=== PATIENT | male | born 1955 | race African-American/Black ===

== ENCOUNTER → 2020-02-06 16:14 | Outpatient (BNV) | payer BC, MEDICARE, SELFPAY | PROVIDERS: PCP Internal Medicine; Visit Provider Internal Medicine | DX: C91.10 Chronic lymphocytic leukemia of B-cell type not having achieved remission (principal); N28.89 Other specified disorders of kidney and ureter | CPT/HCPCS: 99213; 99214 ==

== ENCOUNTER → 2020-03-05 08:16 | Outpatient (REF) | payer BC, SELFPAY ==
--- NOTE | 2020-03-05 08:30 | CA_ITS ---
Transthoracic Echocardiogram Patient (Last, First, Middle): Vish Marc, Gender: Male Date of : 1955 Age: 64 Procedure Date: 03/05/2020 Procedure Type: Transthoracic Echocardiogram Location: OP Height: 182.88 cm Weight: 103.42 kg BSA: 2.25 m2 Heart Rate: bpm BP: 150 / 81 mmHg Sales Development Representative: HANG Referring MD: Magdaleno Urbano MD Symptoms: TYPICAL ATRIAL FLUTTER I48.3 Study Quality: Good ECG Rhythm: Undetermined Conclusions: - The left ventricular systolic function is normal. The visually estimated ejection fraction is between 55-60%. - There is mild calcification of the aortic valve. - No obvious valvular pathology seen on this study. Findings Left Ventricle Normal left ventricular cavity size. There is moderately increased left ventricular wall thickness. The left ventricular systolic function is normal. The visually estimated ejection fraction is between 55-60%. There is no evidence of regional wall motion abnormalities. Diastolic function is indeterminate on the basis of available data. Right Ventricle Normal right ventricular cavity size and systolic function. Atria The left atrium is normal in size. The right atrium is normal in size. Aortic Valve There is a normal trileaflet aortic valve. There is mild calcification of the aortic valve. There is no aortic valve stenosis. There is no aortic valve regurgitation. Mitral Valve The mitral valve appears normal. There is mild mitral valve regurgitation. There is no mitral valve stenosis. Pulmonic Valve The pulmonic valve was not well visualized. Tricuspid Valve Normal tricuspid valve structure. There is no tricuspid valve regurgitation. The pulmonary artery systolic pressure is normal. Great Vessels The asc aorta is normal in size. Venous The inferior vena cava is normal in size and collapses greater than 50% with inspiration. Pericardium/Pleural There is no evidence of pericardial effusion. Prior Study Comparison Changes noted compared to prior study dated: 07/19/2019. Improved LVEF. Recommendations, Care & Conclusions No obvious valvular pathology seen on this study. Measurements 2D Linear Measurements IVSd: 1.40 0.6-0.9/0.6-1.0 cm LVIDd: 5.74 3.9-5.3/4.2-5.9 cm LVIDd Index: 2.55 2.4-3.2/2.2-3.1 cm/m2 LVIDs: 4.26 2.0-3.6 cm LVPWd: 1.22 0.7-1.1 cm Ao Root: 3.50 2.1-3.5 cm LA Diam: 4.40 2.7-3.8/3.0-4.0 cm LAIDs Index: 1.96 1.5-2.3 cm/m2 LV Mass: 410.96 67-162/88-224 g LV Mass Index: 182.65 43-95/49-115 g/m2 LVOT Diam: 2.30 3.0+(-)1.3 cm 2D Systolic Function EF 4C: 52.60 >55% EF 2C: 77.80 >55% EF BiP: 67.50 >55% Mitral Valve MV Pk E: 0.49 MV PK A: 0.57 MV Decel Time: 243.00 E/A: 0.80 PHT: 71.00 MVA PHT: 3.10 Decel [place]: 2.00 Aortic Valve AoV Pk Adrian: 1.63 AoV Pk Grad: 11.00 LVOT LVOT Pk Adrian: 1.32 LVOT Mn Adrian: 0.84 LVOT VTI: 0.26 LVOT Pk Grad: 7.00 LVOT Mn Grad: 4.00 LVOT Diam: 2.30 LVOT Area: 4.15 Diastolic Function MV Pk E: 0.49 MV Pk A: 0.57 E/A: 0.80 Tricuspid Valve TR Pk Adrian: 2.32 TR Pk Grad: 22.00 RA Press: 3.00 RVSP: 25.00 Great Vessels Aorta Ao Root-2D: 3.50 2.0-3.7 cm Ao Asc: 3.60 2.1-3.4 cm Updated in Other Vendor System with Status of Final Magdaleno Urbano MD electronically signed on 03/05/2020 12:42:03 PM with status of Final
--- NOTE | 2020-03-05 09:30 | ECG_ITS ---
Hook-up date: 2020-03-05 10:38:00 Duration: 27:47:00 Test Indications: TYPICAL ATRIAL FLUTTER Medications: 75810 QRS complexes 101 Ventricular ectopics which represent <1 % of total QRS comp. 18859 Supraventricular ectopics which represent 43 % of total QRS comp. * Paced QRS complexs which represent % of total QRS comp. VENTRICULAR ECTOPY 98 Isolated 0 Bigeminal Cycles 0 Couplets 1 Runs 3 Beats in Runs 3 Beats LONGEST at 61 BPM at 08:59:05 2020-03-06 3 Beats FASTEST at 61 BPM at 08:59:05 2020-03-06 SUPRAVENTRICULAR ECTOPY 02904 Isolated 83 Couplets 46 Runs 199 Beats in Runs 25 Beats LONGEST at 125 BPM at 09:57:16 2020-03-06 25 Beats FASTEST at 125 BPM at 09:57:16 2020-03-06 HEART RATES 44 MIN at 09:57:35 2020-03-06 62 AVG 82 MAX at 00:51:51 2020-03-06 LONGEST RR 1.6720 secs at 09:57:30 2020-03-06 S-T LEVELS Channel 1 - 128 mm at 10:38:00 2020-03-05 - 128 mm at 10:38:00 2020-03-05 Channel 2 - 128 mm at 10:38:00 2020-03-05 - 128 mm at 10:38:00 2020-03-05 Channel 3 - 128 mm at 02:95:71 -- - 128 mm at 02:95:71 Underlying rhythm is sinus; Average ventricular rate 62/min; range 44-82/min; Frequent supraventricular ectopy- about 38,000 over 27 Hrs (43%); mostly isolated with some short runs, longest 25 beats at 125/min; Rare ventricular ectopy; Patient did not report any symptoms in the diary Referred By: Joycelyn Alexis Overread By: JOYCELYN ALEXIS
== END ==
LOC: HO.CARD 08:16
PROVIDERS: PCP Internal Medicine; Visit Provider Internal Medicine
DX: I48.3 Typical atrial flutter (principal)
CPT/HCPCS: 93225; 93226; 93306

== ENCOUNTER → 2020-04-22 14:50 | Outpatient (BNVA) | payer BC, SELFPAY | PROVIDERS: PCP Internal Medicine; Visit Provider Internal Medicine | DX: Z76.89 Persons encountering health services in other specified circumstances (principal) ==

== ENCOUNTER → 2020-07-23 15:16 | Outpatient (BNVA) | payer BC, SELFPAY | PROVIDERS: PCP Internal Medicine; Visit Provider Internal Medicine ==

== ENCOUNTER → 2020-08-06 09:48 | Outpatient (REF) | payer BC, MEDICARE, SELFPAY | LOC: HO.SL 09:48 | PROVIDERS: PCP Internal Medicine; Visit Provider Internal Medicine | DX: I48.92 Unspecified atrial flutter (principal) | CPT/HCPCS: 95806 ==

== ENCOUNTER → 2020-09-05 11:19 | Outpatient (BNVA) | payer MEDICARE, SELFPAY | PROVIDERS: PCP Internal Medicine; Visit Provider Internal Medicine | DX: G47.33 Obstructive sleep apnea (adult) (pediatric) (principal); I42.8 Other cardiomyopathies; C91.10 Chronic lymphocytic leukemia of B-cell type not having achieved remission | CPT/HCPCS: 99202 ==

== ENCOUNTER → 2020-10-14 11:11 | Outpatient (BNVA) | payer MEDICARE, SELFPAY | PROVIDERS: PCP Internal Medicine; Visit Provider Internal Medicine | DX: G47.33 Obstructive sleep apnea (adult) (pediatric) (principal) | CPT/HCPCS: 99212 ==

== ENCOUNTER → 2020-12-12 10:07 | Outpatient (BNVA) | payer MEDICARE, SELFPAY | PROVIDERS: PCP Internal Medicine; Referring Provider Internal Medicine; Visit Provider Internal Medicine | DX: I48.3 Typical atrial flutter (principal); I42.8 Other cardiomyopathies; I10 Essential (primary) hypertension; G47.33 Obstructive sleep apnea (adult) (pediatric) | CPT/HCPCS: 93005; 99212 ==

== ENCOUNTER → 2021-02-26 13:14 | Outpatient (BNVA) | payer MEDICARE, SELFPAY | PROVIDERS: PCP Internal Medicine; Visit Provider Internal Medicine | DX: G47.33 Obstructive sleep apnea (adult) (pediatric) (principal); E66.9 Obesity, unspecified | CPT/HCPCS: 99212 ==

== ENCOUNTER → 2022-04-28 10:40 | Outpatient (BNVA) | payer MEDICARE, SELFPAY | PROVIDERS: PCP Internal Medicine; Visit Provider Internal Medicine | DX: I48.3 Typical atrial flutter (principal); I42.8 Other cardiomyopathies; I10 Essential (primary) hypertension; G47.33 Obstructive sleep apnea (adult) (pediatric); Z79.01 Long term (current) use of anticoagulants; Z79.899 Other long term (current) drug therapy; Z99.89 Dependence on other enabling machines and devices | CPT/HCPCS: 93005; 99212 ==

== ENCOUNTER 2022-12-08 11:13 | Outpatient (REF) | payer MEDICARE, SELFPAY | END 2022-12-08 11:14 | disposition home or self-care (01) | LOC: HO.PET 11:13 | PROVIDERS: PCP Internal Medicine; Visit Provider Internal Medicine | DX: Z13.89 Encounter for screening for other disorder (principal) ==

== ENCOUNTER 2023-02-23 11:01 | Outpatient (REF) | payer MEDICARE, SELFPAY ==
--- NOTE | ~2023-02-23 | CT_ITS ---
EXAMINATION: CT CHEST, ABDOMEN AND PELVIS WITHOUT CONTRAST CLINICAL INFORMATION: Chronic lymphocytic leukemia. COMPARISON: 02/18/2017 TECHNIQUE: Multidetector volumetric imaging was performed of the chest, abdomen and pelvis without intravenous contrast. Oral contrast was not administered. Sagittal and coronal reformatted images were obtained on the technologist's workstation. This CT examination was performed using dose optimization techniques as appropriate, variously including the following: *Automated exposure control *Adjustment of mA and/or kV according to patient size (this includes techniques or standardized protocols for targeted exams where dose is matched to indication/reason for exam; i.e. extremities or head) *Use of iterative reconstruction technique DLP: 813.29 mGy-cm FINDINGS: CHEST: AXILLA: No lymphadenopathy. MEDIASTINUM: Heart size is stable. Great vessels are unchanged in caliber. No pericardial effusion. No bulky mediastinal or hilar lymphadenopathy. Patulous esophagus. CORONARY ARTERY CALCIFICATION: Mild. PLEURA: There is no pleural effusion. LUNGS: No suspicious pulmonary nodule. ABDOMEN AND PELVIS: LIVER AND BILIARY TREE: The noncontrast liver is normal in contour. No biliary ductal dilatation. GALLBLADDER: Unremarkable. PANCREAS: Atrophic changes. SPLEEN: Not enlarged. Peripheral calcification. ADRENAL GLANDS: Mild thickening of the left adrenal gland. Right adrenal gland is unremarkable. KIDNEYS AND URETERS: The kidneys are symmetric in size. There are bilateral renal cysts which require no further imaging follow-up. There is a solid mass at the lateral midpole of the left kidney measuring 3.4 x 2.6 x 2.7 cm. No hydronephrosis or perinephric fluid collection. GASTROINTESTINAL TRACT: Hiatal hernia. Small and large bowel loops are of normal caliber. No small bowel obstruction. VASCULAR: Normal caliber abdominal aorta. LYMPH NODES: Enlarged bilateral inguinal lymph nodes measuring up to 1.4 cm in short axis dimension. Few prominent retroperitoneal lymph nodes are smaller than on the comparison study. FREE FLUID: No free fluid. BLADDER: Circumferential wall thickening despite underdistention. PELVIC VISCERA: Enlarged prostate gland. OSSEOUS STRUCTURES: No destructive bone lesions. Fatty atrophy of the left iliopsoas muscle. CT/CT abdomen pelvis wo IV con IMPRESSION: 3.4 x 2.6 x 2.7 cm solid mass lateral midpole of the left kidney.
== END 2023-02-23 11:02 | disposition home or self-care (01) ==
LOC: HO.CT 11:01
PROVIDERS: PCP Internal Medicine; Visit Provider Internal Medicine
DX: C91.10 Chronic lymphocytic leukemia of B-cell type not having achieved remission (principal)
CPT/HCPCS: 71250; 74176

== ENCOUNTER → 2023-04-06 11:23 | Outpatient (REF) | payer MEDICARE, SELFPAY ==
--- NOTE | 2023-04-06 11:31 | CA_ITS ---
Transthoracic Echocardiogram Patient (Last, First, Middle): Vish Marc A Gender: Male Date of : 1955 Age: 68 Procedure Date: 04/06/2023 Procedure Type: Transthoracic Echocardiogram Location: OP Height: 182.88 cm Weight: 104.33 kg BSA: 2.26 m2 Heart Rate: bpm BP: 136 / 76 mmHg Lime Supervisor: CHAY Referring MD: Magdaleno Urbano MD Symptoms: I42.8 - Other cardiomyopathies Study Quality: Fair ECG Rhythm: Sinus Conclusions: - The left ventricular systolic function is hyperdynamic. The visually estimated ejection fraction is >70%. - No obvious valvular pathology seen on this study. Findings Left Ventricle Normal left ventricular cavity size. There is mildly increased left ventricular wall thickness. The left ventricular systolic function is hyperdynamic. The visually estimated ejection fraction is >70%. There is no evidence of regional wall motion abnormalities. Evidence suggests grade I (mild) diastolic dysfunction. There is moderate septal asymmetric hypertrophy. Right Ventricle Normal right ventricular cavity size and systolic function. Atria Both atria are normal in size. Aortic Valve There is a normal trileaflet aortic valve. There is mild calcification of the aortic valve. There is no aortic valve stenosis. There is no aortic valve regurgitation. Mitral Valve The mitral valve appears normal. There is no mitral valve regurgitation. There is no mitral valve stenosis. Pulmonic Valve The pulmonic valve is likely normal. Tricuspid Valve There is trace tricuspid valve regurgitation. Tricuspid regurgitation envelope is inadequate for calculation of right ventricular systolic pressure. Great Vessels The asc aorta is normal in size. Venous The inferior vena cava is normal in size and collapses greater than 50% with inspiration. Pericardium/Pleural There is no evidence of pericardial effusion. Prior Study Comparison Changes noted compared to prior study dated: 03/05/2020. LVEF higher. Recommendations, Care & Conclusions No obvious valvular pathology seen on this study. Measurements 2D Linear Measurements IVSd: 1.48 0.6-0.9/0.6-1.0 cm LVIDd: 4.70 3.9-5.3/4.2-5.9 cm LVIDd Index: 2.08 2.4-3.2/2.2-3.1 cm/m2 LVIDs: 2.96 2.0-3.6 cm LVPWd: 1.14 0.7-1.1 cm LA Diam: 4.30 2.7-3.8/3.0-4.0 cm LAIDs Index: 1.90 1.5-2.3 cm/m2 LV Mass: 299.94 67-162/88-224 g LV Mass Index: 132.72 43-95/49-115 g/m2 LVOT Diam: 2.40 3.0+(-)1.3 cm Mitral Valve MV Pk E: 0.61 MV PK A: 0.73 MV Decel Time: 254.00 E/A: 0.80 E'Lateral: 5.66 E'Medial: 4.26 E/E' Med: 14.20 E/E' Lat: 10.70 PHT: 74.00 MVA PHT: 2.97 Decel [place]: 2.40 Aortic Valve AoV Pk Adrian: 1.45 AoV Pk Grad: 8.00 AYESHA: 4.18 LVOT LVOT Pk Adrian: 1.34 LVOT Pk Grad: 7.00 LVOT Diam: 2.40 LVOT Area: 4.52 Diastolic Function MV Pk E: 0.61 MV Pk A: 0.73 E/A: 0.80 E'Medial: 4.26 E/E' Med: 14.20 E' Laterial: 5.66 E/E' Lat: 10.70 Right Ventricle TAPSE (mm): 23.10 TVS' Adrian: 16.10 Tricuspid Valve RA Press: 3.00 Great Vessels Aorta Sinus of Valsalva: 3.87 2.0-3.5 cm Ao Asc: 3.70 2.1-3.4 cm Updated in Other Vendor System with Status of Final Magdaleno Urbano MD electronically signed on 04/07/2023 12:18:43 PM with status of Final
--- NOTE | 2023-04-06 11:31 | HM_ITS ---
* Total monitoring time 3 days. * Underlying rhythm is sinus with an average rate of 68/Min. Range 72 to 85/Min. * Frequent supraventricular ectopy with a burden of 42%. Frequent couplets. * Rare ventricular ectopy with a burden of 0.3%. One episode of 4 beats at 101/Min. Cannot exclude supraventricular with aberrancy. * No significant pauses or AV blocks. * No patient markers or events in diary. MTDD
== END ==
LOC: HO.CARD 11:23
PROVIDERS: PCP Internal Medicine; Visit Provider Internal Medicine
DX: I48.3 Typical atrial flutter (principal); I42.8 Other cardiomyopathies
CPT/HCPCS: 93242; 93306

== ENCOUNTER → 2023-04-06 11:31 | Outpatient (BNV) | payer MEDICARE, SELFPAY | PROVIDERS: PCP Internal Medicine; Visit Provider Internal Medicine | DX: I47.10 Supraventricular tachycardia, unspecified (principal) | CPT/HCPCS: 93244; 93306 ==

== ENCOUNTER 2023-06-02 14:15 | Outpatient (AMB) | payer MEDICARE, SELFPAY ==
--- NOTE | 2023-06-02 14:34 | A.OFFVIS_ITS ---
Intake Vital Signs 06/02/23 14:36 Height 6 ft Weight 231 lb 0.711 oz BMI 31.3 BP 138/76 Blood Pressure Location Lt brachial Position Sitting Pulse 58 Intake Visit Reasons: r/s 1 year followup w/ekg w/echo Intake Note: 1 year w/ EKG [employer] Required: No Accompanied by: Self / Same As Patient Allergies lisinopril [LISINOPRIL] Allergy (Unknown, Verified 06/02/23 14:37) ANGIOEDEMA nifedipine [From PROCARDIA] Allergy (Unknown, Verified 06/02/23 14:37) Hives diltiazem [DILTIAZEM] Adverse Reaction (Unknown, Verified 06/02/23 14:37) INTERACTS WITH CHEMO MED IMBRUVICA Medication List - Last Reconciled 06/02/23 by Magdaleno Urbano MD apixaban (Eliquis) 5 mg PO BID ibrutinib (Imbruvica) 420 mg PO DAILY insulin aspart U-100 (Novolog FlexPen U-100 Insulin aspart) 100 units subcut BID insulin glargine (Basaglar KwikPen U-100 Insulin) 25 units subcut BEDTIME losartan 25 mg PO DAILY metoprolol tartrate 50 mg PO BID 90 days pioglitazone (Actos) 45 mg PO DAILY rosuvastatin 20 mg PO BEDTIME HPI HPI Comments History of Present Illness Details Vish returns for follow-up regarding atrial flutter. He had very difficult to control atrial flutter. In spite of cardioversions, he was not able to maintain sinus rhythm and was going back into flutter. Then after amiodarone loading, we once again re-attempted cardioversion but that did not last. Eventually had atrial flutter ablation. He has frequent atrial ectopy but no recurrent flutter fibrillation. Overall he is doing generally okay. Some tiredness during the summer when he was trying to do lawn work but no other cardiac symptoms. Of note, we could not use Cardizem in the past due to interaction with chemo medication-ibrutinib. Prior to the atrial flutter issue, we used to follow him regarding high PAC burden. [facility] Medical History Obesity (BMI 30-39.9) Essential hypertension Nonischemic cardiomyopathy Typical atrial flutter Surgical History Status post biopsy of kidney History of cardiac radiofrequency ablation (~11/29/19) Family History Father No problems noted. Mother No problems noted. Social History Household Members: None Housing: House Are you a primary care program director to a significant other at home: No Do you presently have visiting nurse or other home services: No Alcohol intake: never Patient Tobacco Use Status: Never used Tobacco service: No Current occupational status: retired Review of Systems Const Denies weakness ENT Denies dizziness Card Denies chest pain, Denies chest pain with activity, Denies syncope, Denies rapid heart rate, Denies pedal edema, Denies edema, Denies leg edema, Denies lightheadedness, Denies palpitations, Denies dyspnea, Denies dyspnea on exertion and Denies orthopnea Resp Denies cough, Denies dyspnea and Denies dyspnea on exertion GI Denies hematochezia and Denies change in stool character Musc Denies abnormal gait, Denies muscle cramps, Denies muscle weakness, Denies numbness, Denies radiating pain into limb and Denies tingling Neuro Denies abnormal gait, Denies dizziness, Denies syncope, Denies numbness, Denies tingling and Denies weakness Endo Denies palpitations Physical Exam Vital Signs: Last Vital Signs Pulse 58 06/02/23 14:36 BP 138/76 06/02/23 14:36 BMI result Body Mass Index 31.3 Const General: comfortable and no acute distress Orientation/consciousness: patient oriented x3 HEENT Other: Unremarkable Head: Yes normal to inspection Neck Neck: Yes normal visual inspection Chest Chest palpation & inspection: normal inspection of the chest Resp Auscultation: clear to auscultation bilaterally Cardio Palpation: normal PMI Heart sounds: S1 normal heart sound present, S2 normal heart sound present, no gallops, no murmurs and no rubs GI Palpation (GI): Soft to palpation Back/Spine/Pelvis Other: unremarkable Skin General skin exam: no rashes or lesions noted Neuro General: patient oriented x3 Extrem General: Yes normal to inspection Psych Mental Status: mental status grossly normal Office Procedures EKG Details: EKG with sinus bradycardia at 58/Min; frequent supraventricular ectopy in a bigeminal pattern; leftward axis; left ventricular hypertrophy. [id number], Complete Assessment & Plan Assessment & Plan (1) Typical atrial flutter: Code(s): I48.3 - Typical atrial flutter Plan: Holter shows frequent supraventricular ectopy but no clear atrial arrhythmias like flutter/fibrillation. Continue beta-blockers. Unable to use diltiazem due to interaction with ibrutinib. Continue Eliquis. (2) Nonischemic cardiomyopathy: Code(s): I42.8 - Other cardiomyopathies Plan: Suspected tachycardia induced cardiomyopathy with recovered LVEF. Most recently, LVEF > 70%. In the past, myocardial perfusion imaging study showed normal perfusion. (3) Essential hypertension: Code(s): I10 - Essential (primary) hypertension Plan: Stable. No changes. (4) TIN (obstructive sleep apnea): Code(s): G47.33 - Obstructive sleep apnea (adult) (pediatric) Plan: Not using CPAP. Importance was discussed. Coding Level of Care Code Est Pt Level 4 (64630) Diagnoses Typical atrial flutter I48.3 Nonischemic cardiomyopathy I42.8 Essential hypertension I10 TIN (obstructive sleep apnea) G47.33 CPT Codes EKG - CPT: 06049-[id number], Complete ([id number])
[2023-06-02 14:36] VITALS: BP 138/76; PULSE 58; BMI 31.3
== END 2023-06-02 14:55 | disposition home or self-care (01) ==
PROVIDERS: PCP Internal Medicine; Visit Provider Internal Medicine
DX: I48.3 Typical atrial flutter (principal); I42.8 Other cardiomyopathies; I10 Essential (primary) hypertension; G47.33 Obstructive sleep apnea (adult) (pediatric)
CPT/HCPCS: 93010; 99214

== ENCOUNTER → 2023-06-02 14:15 | Outpatient (BNVA) | payer MEDICARE, SELFPAY | PROVIDERS: PCP Internal Medicine; Visit Provider Internal Medicine | DX: I48.3 Typical atrial flutter (principal); I42.8 Other cardiomyopathies; I10 Essential (primary) hypertension; G47.33 Obstructive sleep apnea (adult) (pediatric); Z79.01 Long term (current) use of anticoagulants; Z79.899 Other long term (current) drug therapy | CPT/HCPCS: 93005; 99212 ==

== ENCOUNTER 2024-06-01 13:05 | Outpatient (AMB) | payer MEDICARE, SELFPAY ==
[2024-06-01 13:09] VITALS: BP 130/74; PULSE 51; BMI 31.7
--- NOTE | 2024-06-01 13:09 | MHC.OFFVIS ---
Vital Signs 06/01/24 13:09 Height 6 ft Weight 233 lb 11.04 oz BMI 31.7 BP 130/74 Blood Pressure Location Lt brachial Position Sitting Pulse 51 Intake Visit Reasons: 1 yr f/up [employer] Required: No Accompanied by: Self / Same As Patient Allergies lisinopril [LISINOPRIL] Allergy (Unknown, Verified 04/18/24 10:00) ANGIOEDEMA nifedipine [From PROCARDIA] Allergy (Unknown, Verified 04/18/24 10:00) Hives diltiazem [DILTIAZEM] Adverse Reaction (Unknown, Verified 04/18/24 10:00) INTERACTS WITH CHEMO MED IMBRUVICA Medication List - Last Reconciled 06/01/24 by Magdaleno Urbano MD apixaban (Eliquis) 5 mg PO BID ibrutinib (Imbruvica) 420 mg PO DAILY insulin aspart U-100 (Novolog FlexPen U-100 Insulin aspart) 100 units subcut BID insulin glargine (Basaglar KwikPen U-100 Insulin) 25 units subcut BEDTIME losartan 25 mg PO DAILY metoprolol tartrate 50 mg PO BID 90 days pioglitazone (Actos) 15 mg PO DAILY rosuvastatin 20 mg PO BEDTIME HPI Comments Details: Vish returns for follow-up regarding atrial flutter. He had very difficult to control atrial flutter. In spite of cardioversions, he was not able to maintain sinus rhythm and was going back into flutter. Then after amiodarone loading, we once again re-attempted cardioversion but that did not last. Eventually had atrial flutter ablation. He has frequent atrial ectopy but no recurrent flutter or fibrillation. Of note, we could not use Cardizem in the past due to interaction with chemo medication-ibrutinib. Prior to the atrial flutter issue, we used to follow him regarding high PAC burden. Overall, he states he feels fine. No new cardiac concerns. [facility] Medical History Obesity (BMI 30-39.9) Essential hypertension Nonischemic cardiomyopathy Typical atrial flutter Surgical History Status post biopsy of kidney History of cardiac radiofrequency ablation (~11/29/19) Family History Father No problems noted. Mother No problems noted. Social History Household Members: None Housing: House Are you a primary eye care professional to a significant other at home: No Do you presently have visiting nurse or other home services: No Alcohol intake: never Patient Tobacco Use Status: Never used Tobacco service: No Current occupational status: retired Review of Systems Const Denies chills, Denies fatigue, Denies fever(s), Denies weight gain and Denies weight loss ENT Denies dizziness Card Denies chest pain, Denies leg edema, Denies lightheadedness, Denies palpitations, Denies dyspnea on exertion, Denies orthopnea and Denies other Resp Denies cough and Denies dyspnea on exertion GI Denies hematochezia and Denies change in stool character Musc Denies abnormal gait, Denies muscle weakness, Denies numbness, Denies radiating pain into limb and Denies tingling Neuro Denies abnormal gait, Denies dizziness, Denies numbness and Denies tingling Endo Denies fatigue and Denies palpitations Physical Exam Vital Signs: Last Vital Signs Pulse 51 06/01/24 13:09 BP 130/74 06/01/24 13:09 BMI result Body Mass Index 31.7 Const General: comfortable and no acute distress Orientation/consciousness: patient oriented x3 HEENT Other: Unremarkable Head: Yes normal to inspection Neck Neck: Yes normal visual inspection Chest Chest palpation & inspection: normal inspection of the chest Resp Auscultation: clear to auscultation bilaterally Cardio Palpation: normal PMI Heart sounds: S1 normal heart sound present, S2 normal heart sound present, no gallops, no murmurs and no rubs GI Palpation (GI): Soft to palpation Back/Spine/Pelvis Other: unremarkable Skin General skin exam: no rashes or lesions noted Neuro General: patient oriented x3 Extrem General: Yes normal to inspection Psych Mental Status: mental status grossly normal Office Procedures EKG Details: EKG with sinus bradycardia at 51/Min; leftward axis; left ventricular hypertrophy pattern; premature atrial contractions; [place]. [id number], Complete Assessment & Plan Assessment & Plan (1) Typical atrial flutter: Code(s): I48.3 - Typical atrial flutter Category: Medical Plan: Last Holter from 2022 with frequent supraventricular ectopy but no clear atrial arrhythmias like flutter/fibrillation. Continue beta-blockers. Unable to use diltiazem due to interaction with ibrutinib. Continue Eliquis. We will recheck with next visit. (2) Nonischemic cardiomyopathy: Code(s): I42.8 - Other cardiomyopathies Category: Medical Plan: Suspected tachycardia induced cardiomyopathy with recovered LVEF. Most recently, LVEF > 70%. In the past, myocardial perfusion imaging study showed normal perfusion. (3) Essential hypertension: Code(s): I10 - Essential (primary) hypertension Category: Medical Plan: Stable. No changes. (4) TIN (obstructive sleep apnea): Code(s): G47.33 - Obstructive sleep apnea (adult) (pediatric) Category: Medical Plan: He has not been using CPAP as it is very inconvenient. We discussed about this but unclear that if he will go back. Orders: Orders ECG 3 day holter monitor 1 Year I48.3 - Typical atrial flutter CA echo transthoracic complete 1 Year I42.8 - Other cardiomyopathies Coding Level of Care Code Est Pt Level 4 (25865) Diagnoses Typical atrial flutter I48.3 Nonischemic cardiomyopathy I42.8 Essential hypertension I10 TIN (obstructive sleep apnea) G47.33 CPT Codes EKG - CPT: 22800-[id number], Complete ([id number])
--- OUTSIDE RECORDS SUMMARY | 2024-06-01 16:53 | XMS_ITS | Encounter Summary ---
Author Organization [facility] Address [address] [place] [address] Care Team Providers Care Overnight Houseperson Name Role Phone Pcp, No Primary Care Provider Unavailabl e Encounter Details Date Type Department Care Team (Late st Contact Info) Description 05/31/2017 Scanned Document [address] [id number] Provider, Generic Social History Tobacco Use Types Packs/Day Years Used Date Smoking Tobacco: Never Smokeless Tobacco: Never Alcohol Use Standard Drinks/Week Comments Yes 0 (1 standard drink = 0.6 oz pur e alcohol) OCCASIONAL BEER Sex and Gender Information Value Date Recorded Sex Assigned at Not on file Gender Identity Not on file Sexual Orientation Not on file documented as of this encounter Plan of Treatment Not on file documented as of this encounter Visit Diagnoses Not on filedocumented in this encounter Care Teams Overnight Houseperson Relationship Specialty Start Date End Date Pcp, No PCP - General General Medicine 02/06/16 documented as of this encounter
--- OUTSIDE RECORDS SUMMARY | 2024-06-01 16:53 | XMS_ITS | Clinical Summary ---
Author Organization [facility], Address [address] [place] [address] Phone Care Team Providers Care Crane Follower Name Role Phone Yair Singh MD Primary Care Provider Allergies Active Allergy Reactions Criticality Noted Date Comments Lisinopril Other (see comments) Medium 06/22/2017 Nifedipine Other (see comments) Medium 06/22/2017 Medications amLODIPine (NORVASC) 5 MG tablet Take 5 mg by mouth 1 (one) time each day 6 Active apixaban (Eliquis) 5 MG tablet Take 5 mg by mouth in the morning and 5 mg in the evening. 0 Active Ibrutinib (Imbruvica) 420 MG tablet Take 420 mg by mouth 1 (one) time each day 0 Active insulin aspart (NovoLOG FLEXPEN) 100 UNIT/ML injection Inject 4-14 Units under the skin in the morning and 4-14 Units at noon and 4-14 Units in the evening. Inject before meals. 6 Active insulin glargine (LANTUS) 100 UNIT/ML injection Inject 20 Units under the skin in the morning. 6 Active metoprolol tartrate (LOPRESSOR) 50 MG tablet Take 50 mg by mouth in the morning and 50 mg in the evening. Active pioglitazone (ACTOS) 15 MG tablet Take 15 mg by mouth 1 (one) time each day Active rosuvastatin (CRESTOR) 20 MG tablet Take 20 mg by mouth 1 (one) time each day Active Jardiance 10 MG tablet TAKE ONE TABLET BY MOUTH IN THE MORNING 30 tablet 5 Active Jardiance 10 MG tablet TAKE ONE TABLET BY MOUTH IN THE MORNING 30 tablet 4 05/17/19 25 Discontinued Active Problems Problem Noted Date Diagnosed Date Type 2 diabetes mellitus 08/19/2023 Overview (08/19/2023): insulin-dependent Renal mass 08/19/2023 Proteinuria 08/19/2023 Hyponatremia 08/19/2023 Overview (08/19/2023): hypotonic History of acute kidney injury 08/19/2023 Stage 3b chronic kidney disease 08/19/2023 Peripheral vascular disease 08/19/2023 Cardiomyopathy 08/19/2023 Overview (08/19/2023): nonischemic Hyperlipidemia 05/02/2021 Essential hypertension 02/10/2016 Encounters Date Type Department Care Team Description 05/19/2024 Refill [facility] [address] [place] [address] Messi Burden MD 05/13/2024 Refill [facility] [place] [address] [place] [address] Messi Burden MD 04/19/2024 Refill [facility] [place] [address] [place] [address] Messi Burden MD 03/21/2024 Refill [facility] [place] [address] [place] [address] Messi Burden MD 2024 Refill [facility] [place] [address] [place] [address] Messi Burden MD 03/10/2024 2:45 PM EST Office Visit [facility] [place] [address] [place] [address] Messi Burden MD Chronic kidney disease, stage 4 (severe) (HCC) (Primary Dx) 03/09/2024 Documentation Only [facility] [place] [address] [place] [address] Zelda Castro from Last 3 Months Immunizations Name Administration Dates Next Due Influenza Split High Dose Preservative Free IM 03/18/2016 Influenza, MDCK, Quadrivalen t, with preservative 03/11/2021 Influenza, Unspecified 03/11/2021 PPD Test 05/03/2021 Pfizer SARS-COV-2 02/17/2021,,07/25/2020,2020,07/04/2020,07/04/2020 Family History Relation Status Comments Father Mother Sibling Social History Tobacco Use Types Packs/Day Years Used Date Smoking Tobacco: Never Alcohol Use Standard Drinks/Week Comments Yes 0 (1 standard drink = 0.6 oz pure alcohol) Alcoholic Drinks/day: Occasional social drink Sex and Gender Information Value Date Recorded Sex Assigned at Not on file Legal Sex Male 3:46 PM EDT Gender Identity Not on file Sexual Orientation Not on file Last Filed Vital Signs Vital Sign Reading Time Taken Comments Blood Pressure 110/72 03/10/2024 3:04 PM EST Pulse 52 03/10/2024 3:04 PM EST Temperature - - Respiratory Rate - - Oxygen Saturation - - Inhaled Oxygen Concentration - - Weight 106 kg (233 lb 9.6 oz) 09/10/2020 1:56 PM EDT Height 182.9 cm (6') 01/03/2019 12:00 PM EDT Body Mass Index 31.68 01/03/2019 12:00 PM EDT Plan of Treatment Upcoming Encounters Date Type Department Care Team (Late st Contact Info) Description 09/08/2024 2:15 PM EDT Office Visit [facility] [place] [address] [place] [address] Messi Burden MD [address] [place] [address] [place] [address] Health Maintenance Due Date Last Done Comments Pneumococcal Vaccine: 65+ Years (1 of 2 - PCV) 1961 Colorectal Cancer Screening: Annual FOBT 2003 Colorectal Cancer Screening: Colonoscopy 2003 Colorectal Cancer Screening: Sigmoidoscopy 2003 Diabetes: Hemoglobin A1C 07/24/2019 Diabetes: Ophthalmology Exam 07/24/2019 Diabetes: Pedal Pulse Checked 07/24/2019 Diabetes: Sensory Foot Exam 07/24/2019 Diabetes: Visual Foot Exam 07/24/2019 Influenza Vaccine (#1) 2024 1, 03/11/2021, 03/18/2016 Hepatitis B Vaccine Aged Out No longe r eligible based on patient's age to complete this topic Insurance [facility] Care Teams Crane Follower Relationship Specialty Start Date End Date Yair Singh MD [facility] [address] [facility] [address] [place], [place] PCP - General 03/07/19
--- OUTSIDE RECORDS SUMMARY | 2024-06-01 16:53 | XMS_ITS | Encounter Summary ---
Author Organization [facility] Address [address] [place] [address] Phone Care Team Providers Care Synthetic Chemist Name Role Phone Yair Singh MD Primary Care Provider [phone] Encounter Details Date Type Department Care Team (Late st Contact Info) Description 02/29/2024 Documentation Only [facility] [address] [place] [address] Zelda Castro [address] [place] [phone] Social History Tobacco Use Types Packs/Day Years [...] as of this encounter Plan of Treatment Upcoming Encounters Date Type Department Care Team (Late st Contact Info) Description 09/08/2024 2:15 PM EDT Office Visit [facility] [address] [place] [address] Messi Burden MD [address] [place] [address] [place] [address] documented as of this encounter Visit Diagnoses Not on filedocumented in this encounter Care Teams Synthetic Chemist Relationship Specialty Start Date End Date Yair Singh MD [facility]. [address] [facility] [address] [place], [place] PCP - General 03/07/19 documented as of this encounter
--- OUTSIDE RECORDS SUMMARY | 2024-06-01 16:53 | XMS_ITS | Encounter Summary ---
Author Organization [facility] Address [address] [place] [address] Phone Care Team Providers Care Glove Boarder Name Role Phone Yair Singh MD Primary Care Provider Encounter Details Date Type Department Care Team (Late st Contact Info) Description 03/09/2024 Documentation Only [facility] [address] [place] [address] Zelda Castro [address] [place] [phone] Social History Tobacco Use Types Packs/Day Years [...] Visit [facility] [address] [place] [address] Messi Burden MD [address] [place] [address] [place] [address] documented as of this encounter Visit Diagnoses Not on filedocumented in this encounter Care Teams Glove Boarder Relationship Specialty Start Date End Date Yair Singh MD [facility]. [address] [facility] [address] [place], [place] PCP - General 03/07/19 documented as of this encounter
--- OUTSIDE RECORDS SUMMARY | 2024-06-01 16:53 | XMS_ITS | Encounter Summary ---
Author Organization [facility] Address [address] [place] [address] Phone Care Team Providers Care Station Supervisor Name Role Phone Yair Singh MD Primary Care Provider Encounter Details Date Type Department Care Team (Late st Contact Info) Description 02/29/2024 Documentation Only [facility] [address] [place] [address] Zelda Castro [address] [place] [phone] Social History Tobacco Use Types Packs/Day Years [...] Visit [facility] [address] [place] [address] Messi Burden MD [address] [place] [address] [place] [address] documented as of this encounter Visit Diagnoses Not on filedocumented in this encounter Care Teams Station Supervisor Relationship Specialty Start Date End Date Yair Singh MD [facility]. [address] [facility] [address] [place], [place] PCP - General 03/07/19 documented as of this encounter
--- OUTSIDE RECORDS SUMMARY | 2024-06-01 16:53 | XMS_ITS | Encounter Summary ---
Author Organization [facility] Address [address] [place] [address] Phone Care Team Providers Care Automobile Service Writer Name Role Phone Yair Singh MD Primary Care Provider [phone] Reason for Visit * Reason Comments Med Refill Encounter Details Date Type Department Care Team (Late st Contact Info) Description 05/13/2024 Refill [facility] [address] [address] Messi Burden MD [address] [address] [place] [address] Social History Tobacco Use Types Packs/Day Years [...] Visit [facility] [address] [address] Messi Burden MD [address] [place] [address] documented as of this encounter Visit Diagnoses Not on filedocumented in this encounter Care Teams Automobile Service Writer Relationship Specialty Start Date End Date Yair Singh MD [facility]. [address] [place] [address] [address] [place], [place] PCP - General 03/07/19 documented as of this encounter
--- OUTSIDE RECORDS SUMMARY | 2024-06-01 16:53 | XMS_ITS | Encounter Summary ---
Author Organization [facility] Address [address] [place] [address] Phone Care Team Providers Care Auto Brake Mechanic Name Role Phone Yair Singh MD Primary Care Provider [phone] Reason for Visit * Reason Comments Med Refill Encounter Details Date Type Department Care Team (Late st Contact Info) Description 02/22/2024 Refill [facility] [address] [place] [address] Messi Burden MD [address] [place] [address] Social History Tobacco Use Types [...] Visit [facility] [address] [place] [address] Messi Burden MD [address] [place] [address] documented as of this encounter Visit Diagnoses Not on filedocumented in this encounter Care Teams Auto Brake Mechanic Relationship Specialty Start Date End Date Yair Singh MD [facility]. [address] [place] [address] [address] [place], [place] PCP - General 03/07/19 documented as of this encounter
--- OUTSIDE RECORDS SUMMARY | 2024-06-01 16:53 | XMS_ITS ---
Author Organization [facility] on Address Unknown Allergies, Adverse Reactions, Alerts Substance Reaction Status Noted Date Resolved Date Zestril active 05/02/2021 Procardia active 05/02/2021 Problems Problem Status Start Date End Date SEPSIS, UNSPECIFIED ORGANISM (Primary) (A41.9 - ICD-10 -CM) ACTIVE 05/02/2021 PERSONAL HISTORY OF COVID-19 (Z86.16 - ICD-10-CM) ACTI VE 05/02/2021 PNEUMONIA DUE TO CORONAVIRUS DISEASE 2019 (J12.82 - ICD-10-CM) ACTIVE 05/02/2021 ACUTE RESPIRATORY FAILURE, U NSPECIFIED WHETHER WITH HYPOXIA OR HYPERCAPNIA (J96.00 - ICD-10-CM) ACTIVE 05/02/2021 TYPE 2 DIABETES MELLITUS WIT HOUT COMPLICATIONS (E11.9 - ICD-10-CM) ACTIVE 05/02/2021 HYPO-OSMOLALITY AND HYPONATREMIA (E87.1 - ICD-10-CM) A CTIVE 05/02/2021 OTHER SPECIFIED FUNCTIONAL I NTESTINAL DISORDERS (K59.89 - ICD-10-CM) ACTIVE 05/02/2021 PAROXYSMAL ATRIAL FIBRILLATION (I48.0 - ICD-10-CM) ACT MTA 05/02/2021 HYPERLIPIDEMIA, UNSPECIFIED (E78.5 - ICD-10-CM) ACTIVE 05/02/2021 ESSENTIAL (PRIMARY) HYPERTENSION (I10 - ICD-10-CM) ACT MAT 05/02/2021 DYSPHAGIA, UNSPECIFIED (R13.10 - ICD-10-CM) ACTIVE 05/02/2021 Encounters Encounter Performer Performer Role Encounter Diagnoses Location Date Discharge - Discharged to home or self care - [facility] - Private home/apt. with home health services [facility] 05/02/2021 01:42 pm EST - 05/13/2021 11:16 am EST Immunizations Vaccine Date TB 2 Step Mantoux Skin Test 05/03/2021 0 9:00 am EST SARS-COV-2 (COVID-19) 02/17/2021 12:00 a m EDT SARS-COV-2 (COVID-19) 07/25/2020 12:00 a m EDT SARS-COV-2 (COVID-19) 07/04/2020 12:00 a m EST Social History
--- OUTSIDE RECORDS SUMMARY | 2024-06-01 16:53 | XMS_ITS | Encounter Summary ---
Author Organization [facility] Address [address] [place] [address] Phone Care Team Providers Care Telecommunications Field Technician Name Role Phone Yair Singh MD Primary Care Provider [phone]- [phone] Reason for Visit * Reason Comments Med Refill Encounter Details Date Type Department Care Team (Late st Contact Info) Description 05/19/2024 Refill [facility] [address] [place] [address] Messi Burden MD [address] [place] [address] Social History Tobacco Use Types [...] Visit [facility] [address] [place] [address] Messi Burden MD [address] [place] [address] documented as of this encounter Visit Diagnoses Not on filedocumented in this encounter Care Teams Telecommunications Field Technician Relationship Specialty Start Date End Date Yair Singh MD [facility]. [address] [place] [address] [address] [place], [place] PCP - General 03/07/19 documented as of this encounter
--- OUTSIDE RECORDS SUMMARY | 2024-06-01 16:53 | XMS_ITS | Encounter Summary ---
Author Organization [facility] Address [address] [place] [address] Phone Care Team Providers Care Couples Therapist Name Role Phone Yair Singh MD Primary Care Provider Encounter Details Date Type Department Care Team (Late st Contact Info) Description 02/29/2024 Documentation Only [facility] [address] [place] [address] Zelda Castro [address] [place] [phone] Social History Tobacco Use Types Packs/Day Years [...] Visit [facility] [address] [place] [address] Messi Burden MD [address] [place] [address] [place] [address] documented as of this encounter Visit Diagnoses Not on filedocumented in this encounter Care Teams Couples Therapist Relationship Specialty Start Date End Date Yair Singh MD [facility]. [address] [facility] [address] [place], [place] PCP - General 03/07/19 documented as of this encounter
--- OUTSIDE RECORDS SUMMARY | 2024-06-01 16:54 | XMS_ITS | Encounter Summary ---
Author Organization [facility] Address [address] [place] [address] Phone Care Team Providers Care Industrial Hygenist Name Role Phone Yair Singh MD Primary Care Provider Encounter Details Date Type Department Care Team (Late st Contact Info) Description 05/23/2021 Documentation Only [facility] [address] [place] [address] [place] [address] [place] [address] Social History Tobacco Use Types Packs/Day Years [...] Visit [facility] [address] [place] [address] Messi Burden MD [address] [facility] [place] [address] documented as of this encounter Visit Diagnoses Not on filedocumented in this encounter Care Teams Industrial Hygenist Relationship Specialty Start Date End Date Yair Singh MD [facility]. [address] [facility] [address] [place], [place] PCP - General 03/07/19 documented as of this encounter
--- OUTSIDE RECORDS SUMMARY | 2024-06-01 16:54 | XMS_ITS | Encounter Summary ---
Author Organization [facility] Address [address] [place] [address] Phone Care Team Providers Care Decorative Cutting Machine Tender Name Role Phone Yair Singh MD Primary Care Provider Encounter Details Date Type Department Care Team (Late st Contact Info) Description 05/28/2021 Documentation Only [facility] [address] [place] [address] Messi Burden MD [address] [facility] [place] [address] Social History Tobacco Use Types [...] Visit [facility] [address] [address] [place] [place] [address] Messi Burden MD [address] [facility] [place] [address] documented as of this encounter Visit Diagnoses Not on filedocumented in this encounter Care Teams Decorative Cutting Machine Tender Relationship Specialty Start Date End Date Yair Singh MD [facility] [address] [place] [address] [address] [place], [place] PCP - General 03/07/19 documented as of this encounter
--- OUTSIDE RECORDS SUMMARY | 2024-06-01 16:54 | XMS_ITS | Encounter Summary ---
Author Organization [facility] Address [address] [place] [address] Phone Care Team Providers Care Salvager Name Role Phone Yair Singh MD Primary Care Provider Encounter Details Date Type Department Care Team (Late st Contact Info) Description 08/17/2023 Documentation Only [facility] [address] [place] [address] Zelda Castro [address] [place] [phone] Social History Tobacco Use Types Packs/Day Years [...] Visit [facility] [address] [place] [address] Messi Burden MD [address] [place] [address] [place] [address] documented as of this encounter Visit Diagnoses Not on filedocumented in this encounter Care Teams Salvager Relationship Specialty Start Date End Date Yair Singh MD [facility]. [address] [facility] [address] [place], [place] PCP - General 03/07/19 documented as of this encounter
--- OUTSIDE RECORDS SUMMARY | 2024-06-01 16:54 | XMS_ITS | Encounter Summary ---
Author Organization [facility] Address [address] [place] [address] Phone Care Team Providers Care Piler Name Role Phone Yair Singh MD Primary Care Provider Encounter Details Date Type Department Care Team (Late st Contact Info) Description 05/28/2021 Documentation Only [facility] Of [address] [place] [address] Messi Burden MD [address] [facility] [place] [address] Social History Tobacco Use Types [...] Visit [facility] [address] [place] [address] Messi Burden MD [address] [facility] [place] [address] documented as of this encounter Visit Diagnoses Not on filedocumented in this encounter Care Teams Piler Relationship Specialty Start Date End Date Yair Singh MD [facility]. [address] [place] [address] [address] [place], [place] PCP - General 03/07/19 documented as of this encounter
--- OUTSIDE RECORDS SUMMARY | 2024-06-01 16:54 | XMS_ITS | Encounter Summary ---
Author Organization [facility] Address [address] [place] [address] Phone Care Team Providers Care Sustainable Systems Analyst Name Role Phone Yair Singh MD Primary Care Provider Encounter Details Date Type Department Care Team (Late st Contact Info) Description 09/03/2023 Documentation Only [facility] [address] [place] [address] Zelda Castro [address] [place] [address] Social History Tobacco Use Types [...] Visit [facility] [address] [place] [place] [address] Messi Burden MD [address] [place] [address] [place] [address] documented as of this encounter Visit Diagnoses Not on filedocumented in this encounter Care Teams Sustainable Systems Analyst Relationship Specialty Start Date End Date Yair Singh MD [facility]. [address] [facility] [address] [place], [place] PCP - General 03/07/19 documented as of this encounter
--- OUTSIDE RECORDS SUMMARY | 2024-06-01 16:54 | XMS_ITS | Encounter Summary ---
Author Organization [facility] Address [address] [place] [address] Phone Care Team Providers Care Supervisor Home Energy Consultant Name Role Phone Yair Singh MD Primary Care Provider Encounter Details Date Type Department Care Team (Late st Contact Info) Description 08/19/2023 Documentation Only [facility] [address] [place] [place] [address] Zelda Castro [address] [place] [phone] Social History Tobacco Use Types Packs/Day Years [...] Visit [facility] [address] [place] [place] [address] Messi Burden MD [address] [place] [address] [place] [address] documented as of this encounter Visit Diagnoses Not on filedocumented in this encounter Care Teams Supervisor Home Energy Consultant Relationship Specialty Start Date End Date Yair Singh MD [facility]. [address] [facility] [address] [place], [place] PCP - General 03/07/19 documented as of this encounter
--- OUTSIDE RECORDS SUMMARY | 2024-06-01 16:54 | XMS_ITS | Encounter Summary ---
Author Organization [facility] Address [address] [place] [address] Phone Care Team Providers Care Pilot Boat Deckhand Name Role Phone Yair Singh MD Primary Care Provider [phone]- [phone] Reason for Visit * Reason Comments Med Refill Encounter Details Date Type Department Care Team (Late st Contact Info) Description 03/21/2024 Refill [facility] [address] [place] [address] Messi Burden MD [address] [facility] [place] [address] Social History Tobacco Use Types [...] Visit [facility] [address] [place] [address] Messi Burden MD [address] [facility] [place] [address] documented as of this encounter Visit Diagnoses Not on filedocumented in this encounter Care Teams Pilot Boat Deckhand Relationship Specialty Start Date End Date Yair Singh MD [facility]. [address] [place] [address] [address] [place], [place] PCP - General 03/07/19 documented as of this encounter
--- OUTSIDE RECORDS SUMMARY | 2024-06-01 16:54 | XMS_ITS | Encounter Summary ---
Author Organization [facility] Address [address] [place] [address] Phone Care Team Providers Care Offensive Coordinator Name Role Phone Yair Singh MD Primary Care Provider Encounter Details Date Type Department Care Team (Late st Contact Info) Description 05/23/2021 Documentation Only [facility] [address] [place] [address] [place], [place] [address] [place] [address] Social History Tobacco Use Types [...] Visit [facility] [address] [place] [address] Messi Burden MD [address] [place] [address] documented as of this encounter Visit Diagnoses Not on filedocumented in this encounter Care Teams Offensive Coordinator Relationship Specialty Start Date End Date Yair Singh MD [facility]. [address] [facility] [address] [place], [place] PCP - General 03/07/19 documented as of this encounter
--- OUTSIDE RECORDS SUMMARY | 2024-06-01 16:54 | XMS_ITS | Encounter Summary ---
Author Organization [facility] Address [address] [place] [address] Phone Care Team Providers Care Head Control Clerk Name Role Phone Yair Singh MD Primary Care Provider Encounter Details Date Type Department Care Team (Late st Contact Info) Description 11/29/2023 Documentation Only [facility] [address] [place] [address] Zelda Castro [address] [place] [phone] Social History Tobacco Use Types Packs/Day Years [...] Visit [facility] [address] [place] [address] Messi Burden MD [address] [place] [address] [place] [address] documented as of this encounter Visit Diagnoses Not on filedocumented in this encounter Care Teams Head Control Clerk Relationship Specialty Start Date End Date Yair Singh MD [facility]. [address] [facility] [address] [place], [place] PCP - General 03/07/19 documented as of this encounter
--- OUTSIDE RECORDS SUMMARY | 2024-06-01 16:54 | XMS_ITS | Encounter Summary ---
Author Organization [facility] Address [address] [place] [address] Phone Care Team Providers Care Office Machines Wirer Name Role Phone Yair Singh MD Primary Care Provider Encounter Details Date Type Department Care Team (Late st Contact Info) Description 08/17/2023 Documentation Only [facility] [address] [place] [address] Zelda Castro [address] [place] [phone] Social History Tobacco Use Types Packs/Day Years [...] Visit [facility] [address] [place] [address] Messi Burden MD [address] [place] [address] [place] [address] documented as of this encounter Visit Diagnoses Not on filedocumented in this encounter Care Teams Office Machines Wirer Relationship Specialty Start Date End Date Yair Singh MD [facility]. [address] [facility] [address] [place], [place] PCP - General 03/07/19 documented as of this encounter
--- OUTSIDE RECORDS SUMMARY | 2024-06-01 16:54 | XMS_ITS | Encounter Summary ---
Author Organization [facility] Address [address] [place] [address] Phone Care Team Providers Care Clinical Studies Specialist Name Role Phone Yair Singh MD Primary Care Provider Encounter Details Date Type Department Care Team (Late st Contact Info) Description 08/17/2023 Documentation Only [facility] [address] [place] [address] Zelda Castro [address] [place] [phone] Social History Tobacco Use Types Packs/Day Years [...] Visit [facility] [address] [place] [address] Messi Burden MD [address] [place] [address] [place] [address] documented as of this encounter Visit Diagnoses Not on filedocumented in this encounter Care Teams Clinical Studies Specialist Relationship Specialty Start Date End Date Yair Singh MD [facility]. [address] [facility] [address] [place], [place] PCP - General 03/07/19 documented as of this encounter
--- OUTSIDE RECORDS SUMMARY | 2024-06-01 16:54 | XMS_ITS | Clinical Summary ---
Author Organization [facility] Address [address] [place] [address] Care Team Providers Care Supervisor Shuttle Veneering Name Role Phone Pcp, No Primary Care Provider Unavailabl e Allergies Active Allergy Reactions Criticality Noted Date Comments Lisinopril Unknown/Patient and Family Unable to Define Medium 06/22/2017 Nifedipine Unknown/Patient and Family Unable to Define Medium 06/22/2017 Medications Medication Sig Dispensed Refills Start Date End Date Status allopurinol (ZYLOPRIM) 100 mg tablet 01/31/2016 Active amLODIPine (NORVASC) 5 MG tablet 01/31/2016 Active INSULIN ASPARHUMALOG,NOVOLOG 100 UNIT/ML prefilled pen injection 12/13/2015 Active INSULIN GLARGINE 100 UNIT/ML pen injection 12/13/2015 Act shea labetalol (NORMODYNE) 200 MG tablet 01/29/2016 Active BD PEN NEEDLE FUENTES U/F 32G X 4 MM Misc 05/11/2017 Active ELIQUIS 5 MG tablet 06/01/2019 Activ e IMBRUVICA 420 MG Tab 05/04/2019 Acti ve losartan-hydrochloroth iazide (HYZAAR) 50-12.5 MG per tablet TAKE 1 TABLET ONCE DAILY 04/25/2019 Active metoPROLOL TARTRATE (LOPRESSOR) 100 MG tablet 06/02/2019 Active Active Problems Problem Noted Date Diagnosed Date CLL (chronic lymphocytic leukemia) 06/22/2017 CLL (chronic lymphocytic leukemia) 05/25/2017 IDDM (insulin dependent diabetes mellitus) 02/09 Essential hypertension 02/10/2016 Gout 02/10/2016 Return to work evaluation 02/10/2016 Social History Tobacco Use Types Packs/Day Years [...] Sign Reading Time Taken Comments Blood Pressure 132/88 06/02/2019 1:16 PM EST Pulse 71 06/02/2019 1:16 PM EST Temperature - - Respiratory Rate - - Oxygen Saturation 96% 06/02/2019 1:16 PM EST Inhaled Oxygen Concentration - - Weight - - Height - - Body Mass Index - - Plan of Treatment Health Maintenance Due Date Last Done Comments Hepatitis C Virus Screening 1955 DTaP/Tdap/Td Vaccines (1 - Tdap) 1973 Pneumococcal Vaccines 50+ (1 of 1 - PCV) 2004 Zoster (Shingles) Vaccine (1 of 2) 2004 COVID-19 Vaccine (2023-2 5 season) 2024 RSV Vaccine 60 years and old er and Patients (1 - 1-dose 75+ series) 2029 Hepatitis B Vaccines Aged Out No long er eligible based on patient's age to complete this topic Care Teams Supervisor Shuttle Veneering Relationship Specialty Start Date End Date Pcp, No PCP - General General Medicine 02/06/16
--- OUTSIDE RECORDS SUMMARY | 2024-06-01 16:54 | XMS_ITS | Encounter Summary ---
Author Organization [facility] Address [address] [place] [address] Phone Care Team Providers Care Want Ad Supervisor Name Role Phone Yair Singh MD Primary Care Provider [phone] Encounter Details Date Type Department Care Team (Late st Contact Info) Description 08/19/2023 Documentation Only [facility] [address] [place] [address] Zelda Castro [address] [place] [phone] Social History Tobacco Use Types Packs/Day Years [...] Visit [facility] [address] [place] [address] Messi Burden MD [address] [place] [address] [place] [address] documented as of this encounter Visit Diagnoses Not on filedocumented in this encounter Care Teams Want Ad Supervisor Relationship Specialty Start Date End Date Yair Singh MD [facility]. [address] [facility] [address] [place], [place] PCP - General 03/07/19 documented as of this encounter
--- OUTSIDE RECORDS SUMMARY | 2024-06-01 16:54 | XMS_ITS | Encounter Summary ---
Author Organization [facility] Address [address] [place] [address] Phone Care Team Providers Care Nailing Machine Operator Name Role Phone Yair Singh MD Primary Care Provider Encounter Details Date Type Department Care Team (Late st Contact Info) Description 08/19/2023 Documentation Only [facility] [address] [place] [address] Zelda Castro [address] [place] [phone] Social History Tobacco Use Types Packs/Day Years [...] Visit [facility] [address] [place] [address] Messi Burden MD [address] [place] [address] [place] [address] documented as of this encounter Visit Diagnoses Not on filedocumented in this encounter Care Teams Nailing Machine Operator Relationship Specialty Start Date End Date Yair Singh MD [facility]. [address] [facility] [address] [place], [place] PCP - General 03/07/19 documented as of this encounter
--- OUTSIDE RECORDS SUMMARY | 2024-06-01 16:54 | XMS_ITS | Encounter Summary ---
Author Organization [facility] Address [address] [place] [address] Phone Care Team Providers Care Hvac R Tech Name Role Phone Yair Singh MD Primary Care Provider Encounter Details Date Type Department Care Team (Late st Contact Info) Description 10/14/2023 Documentation Only [facility] [address] [place] [address] [place], [place] [address] [place] [address] Social History Tobacco Use Types [...] [facility] [address] [address] [place] [address] Messi Burden MD [address] [facility] [place] [address] documented as of this encounter Visit Diagnoses Not on filedocumented in this encounter Care Teams Hvac R Tech Relationship Specialty Start Date End Date Yair Singh MD [facility] [address] [facility] [address] [place], [place] PCP - General 03/07/19 documented as of this encounter
--- OUTSIDE RECORDS SUMMARY | 2024-06-01 16:54 | XMS_ITS | Encounter Summary ---
Author Organization [facility] Address [address] [place] [address] Phone Care Team Providers Care Prune Washer Name Role Phone Yair Singh MD Primary Care Provider Encounter Details Date Type Department Care Team (Late st Contact Info) Description 08/17/2023 Documentation Only [facility] [address] [place] [address] Zelda Castro [address] [place] [phone] Social History Tobacco Use Types Packs/Day Years [...] [facility] [address] [place] [address] Messi Burden MD [address] [place] [address] [place] [address] documented as of this encounter Visit Diagnoses Not on filedocumented in this encounter Care Teams Prune Washer Relationship Specialty Start Date End Date Yair Singh MD [facility]. [address] [facility] [address] [place], [place] PCP - General 03/07/19 documented as of this encounter
--- OUTSIDE RECORDS SUMMARY | 2024-06-01 16:54 | XMS_ITS | Encounter Summary ---
Author Organization [facility] Address [address] [place] [address] Phone Care Team Providers Care Dietary Tech Name Role Phone Yair Singh MD Primary Care Provider [phone] Encounter Details Date Type Department Care Team (Late st Contact Info) Description 05/23/2021 Documentation Only [facility] [address] [place] [address] Guillermo [place], [place] [address] [place] [address] Social History Tobacco Use Types [...] [facility] [address] [place] [address] Messi Burden MD [address] [facility] [place] [address] documented as of this encounter Visit Diagnoses Not on filedocumented in this encounter Care Teams Dietary Tech Relationship Specialty Start Date End Date Y[facility] Singh MD [facility] [address] [facility] [address] [place], [place] PCP - General 03/07/19 documented as of this encounter
--- OUTSIDE RECORDS SUMMARY | 2024-06-01 16:54 | XMS_ITS | Encounter Summary ---
Author Organization [facility] Address [address] [place] [address] Phone Care Team Providers Care Marquetry Worker Name Role Phone Yair Singh MD Primary Care Provider Encounter Details Date Type Department Care Team (Late st Contact Info) Description 08/17/2023 Documentation Only [facility] [address] [place] [address] Zelda Castro [address] [place] [phone] Social History Tobacco Use Types Packs/Day Years [...] Visit [facility] [address] [place] [address] Messi Burden MD [address] [place] [address] Dr. [place] [address] documented as of this encounter Visit Diagnoses Not on filedocumented in this encounter Care Teams Marquetry Worker Relationship Specialty Start Date End Date Yair Singh MD [facility]. [address] [facility] [address] [place], [place] PCP - General 03/07/19 documented as of this encounter
== END 2024-06-01 13:33 | disposition home or self-care (01) ==
PROVIDERS: PCP Internal Medicine; Visit Provider Internal Medicine
DX: I48.3 Typical atrial flutter (principal); I42.8 Other cardiomyopathies; I10 Essential (primary) hypertension; G47.33 Obstructive sleep apnea (adult) (pediatric)
CPT/HCPCS: 93010; 99214

== ENCOUNTER → 2024-06-01 13:05 | Outpatient (BNVA) | payer MEDICARE, SELFPAY | PROVIDERS: PCP Internal Medicine; Visit Provider Internal Medicine | DX: I48.3 Typical atrial flutter (principal); I42.8 Other cardiomyopathies; I10 Essential (primary) hypertension; G47.33 Obstructive sleep apnea (adult) (pediatric); R94.31 Abnormal electrocardiogram [ECG] [EKG] | CPT/HCPCS: 93005; 99212 ==